=== PATIENT | female | born 1995 | race Two or more races ===

== ENCOUNTER 2020-03-13 17:05 | Observation (INO) | payer OTHER ==
[2020-03-13] VITALS (7 sets, daily range): BP systolic 77–108; BP diastolic 51–64
[~2020-03-13] VITALS: Ht 160 cm; Wt 70.8 kg
[~2020-03-13 17:05] MED LIST: LACT. RINGERS/OXYTOCIN 20UNITS 1,000 ML IV SCH
[2020-03-13] MEDS ORDERED: ceFAZolin 1GM/50ML 50 ML IV ONE (18:30)
[2020-03-13 18:33] LABS: Basophils # (auto) 0.1 10 ^3/uL (0-0.2); Basophils % (auto) 0.3 % (0.0-2.0); Eosinophils # (auto) 0 10 ^3/uL (0-0.8); Eosinophils % (auto) 0.2 % (0.0-7.0); Hematocrit 39.4 % (36.0-46.0); Hemoglobin 12.7 g/dL (12.2-16.2); Lymphocytes # (auto) 1.9 10 ^3/uL (0.4-5.4); Lymphocytes % (auto) 8.5 % (10.0-50.0); Mean Corpuscular Hemoglobin 28.5 pg (28.0-32.0); Mean Corpuscular Hgb Conc. 32.3 g/dL (32.0-36.0); Mean Corpuscular Volume 88.1 fL (80.0-100.0); Monocytes # (auto) 0.9 10 ^3/uL (0-1.3); Neutrophils # (auto) 19.6 10 ^3/uL (1.6-8.6); Platelet Count (auto) 361 10^3/uL (140-450); Red Blood Cells 4.47 10^6/uL (4.0-5.20); Red Cell Distribution Width 13.9 % (11.8-14.3); White Blood Cell 22.6 10^3/uL (4.4-10.8)
[2020-03-13] MEDS ORDERED: GENTAMICIN SULFATE 80 MG in D5W 5% 100 ML IV ONE (18:45)
[2020-03-13 18:50] LABS: Albumin 3.4 g/dL (3.4-5.0); Calcium 8.3 mg/dL (8.5-10.1); Potassium 3.4 mmol/L (3.5-5.1)
[2020-03-13 18:53] LABS: INR 1.07 (0.9-1.15); Partial Thromboplastin Time 21.7 sec (23.0-31.2)
[2020-03-13 18:54] LABS: BUN/Creatinine Ratio 12.9; Bilirubin, Total 0.3 mg/dL (0.2-1.0); Total Protein 7.1 g/dL (6.4-8.2)
[2020-03-13] MEDS ORDERED: MIDAZOLAM HCL 1MG/1ML-2 ML VIAL ONE (19:08)
[2020-03-13] MEDS ORDERED: fentaNYL CITRATE 100 MCG/2 ML VL ONE (19:08)
[2020-03-13] MEDS ORDERED: DexAMETHasone SOD PHOS 10MG/1ML VIAL INJ ONE (19:15)
[2020-03-13] MEDS ORDERED: PROPOFOL 10 MG/ML 20 ML IV ONE (19:36)
--- NOTE | 2020-03-13 19:40 | NUR ---
Dr Hoang on unit, labs and US results reviewed, orders received.
[2020-03-13] MEDS ORDERED: HYDROmorphone HCL 2 MG/ML VL IV PRN (19:45)
[2020-03-13] MEDS ORDERED: MIDAZOLAM HCL 1MG/1ML-2 ML VIAL IV PRN (19:45)
[2020-03-13] MEDS ORDERED: ePHEDrine SULFATE 50 MG/ML AMP IV PRN (19:45)
[2020-03-13] MEDS ORDERED: ONDANSETRON HCL 4 MG/2 ML VIAL IV PRN ×2 (19:45)
[2020-03-13] MEDS ORDERED: MORPHINE SULFATE 4 MG/ML SYR/VIAL IV PRN (19:45)
[2020-03-13] MEDS ORDERED: LABETALOL HCL 5 MG/ML 4ML SYRINGE IV PRN (19:45)
[2020-03-13] MEDS ORDERED: RHO (D) IMMUNE GLOBULIN 300 MCG INJ IM PRN (19:45)
[2020-03-13 19:54] LABS: Urine Bacteria NONE SEEN /hpf (None Seen); Urine Blood 2+ /uL (Negative); Urine Mucus MODERATE (None Seen); Urine Specific Gravity 1.034 (1.001-1.035); Urine WBC 4 /hpf (0 - 5)
[2020-03-13] MEDS ORDERED: GENTAMICIN PER PHARMACY 0 ML IV SCH (20:00)
[2020-03-13 20:03] LABS: Amphetamine Screen, Urine NEGATIVE (NEGATIVE); Barbiturate Scree,Urine NEGATIVE (NEGATIVE); Benzodiazephine Screen, Urine NEGATIVE (NEGATIVE); Cannabinoid Screen, Urine NEGATIVE (NEGATIVE); Cocaine Screen, Urine NEGATIVE (NEGATIVE); Opiate Scree,Urine NEGATIVE (NEGATIVE); Phencyclidine Screen, Urine NEGATIVE (NEGATIVE)
--- NOTE | 2020-03-13 20:15 | NUR ---
RECIEVED PT FROM [facility].D&C.SHE IS AWAKE AND ALERT.SHE IS INFORMED OF THIS STEP IN HER CARE AND RECOVERY.SHE IS TRANSFERED TO 8B.SHE IS ORIENTATED TO CALL LITE AND REVIEW OF THE PLAN OF CARE AT THIS TIME.. AT BEDSIDE.IV IN LEFT ARM INTACT.1000 WITH PITOCIN INFUSING 700 ML TBA.
--- NOTE | 2020-03-13 21:25 | NUR ---
IS CALLED AND SBAR REPORT IS GIVEN REGUARDING THE PT BP EVALUATION AND LOW URINE OUTPUT. 2130 DR.ZAND MURPHY IS ALSO GIVEN SBAR REPORT.NEW ORDERS ARE GIVEN AND NOTED
[2020-03-13] MEDS ORDERED: SODIUM CHL 0.9% 1000 ML BAG IV ONE (21:45)
[2020-03-13 22:38] LABS: Basophils # (auto) 0 10 ^3/uL (0-0.2); Basophils % (auto) 0.1 % (0.0-2.0); Eosinophils # (auto) 0 10 ^3/uL (0-0.8); Hematocrit 29.2 % (36.0-46.0); Hemoglobin 9.4 g/dL (12.2-16.2); Lymphocytes # (auto) 1.2 10 ^3/uL (0.4-5.4); Lymphocytes % (auto) 4.8 % (10.0-50.0); Mean Corpuscular Hemoglobin 28.4 pg (28.0-32.0); Mean Corpuscular Hgb Conc. 32.1 g/dL (32.0-36.0); Mean Corpuscular Volume 88.3 fL (80.0-100.0); Monocytes # (auto) 0.2 10 ^3/uL (0-1.3); Monocytes % (auto) 0.8 % (0.0-12.0); Neutrophils # (auto) 24.1 10 ^3/uL (1.6-8.6); Neutrophils % (auto) 94.3 % (37.0-80.0); Platelet Count (auto) 321 10^3/uL (140-450); Red Blood Cells 3.31 10^6/uL (4.0-5.20); White Blood Cell 25.5 10^3/uL (4.4-10.8)
[2020-03-13 22:57] LABS: INR 1.1 (0.9-1.15); Partial Thromboplastin Time 23.7 sec (23.0-31.2)
[2020-03-13 22:58] LABS: Albumin 2.7 g/dL (3.4-5.0); BUN/Creatinine Ratio 13.1; Calcium 7.3 mg/dL (8.5-10.1); Potassium 3.9 mmol/L (3.5-5.1)
[2020-03-13 23:02] LABS: Bilirubin, Total 0.2 mg/dL (0.2-1.0); Total Protein 5.5 g/dL (6.4-8.2)
--- NOTE | 2020-03-13 23:16 | NUR ---
Dr Hoang called, lab results reviewed, VS reviewed. Orders received for repeat CBC at 0600.
--- NOTE | 2020-03-13 23:30 | NUR ---
DR.ZAND MURPHY IS CALLED AND SBAR REPORT IS GIVEN,NOTED IMPROVEMENT OF URINE OUTPUT PT WILL CONTINUE TO BE MONITORED.
[2020-03-14 00:45] VITALS: BP 98/61
[2020-03-14 02:00] VITALS: BP 102/66
[2020-03-14] MEDS: ceFAZolin 1GM/50ML 50 ML IV SCH ×2 (02:04→10:06)
[2020-03-14 03:00] VITALS: BP 104/66
[2020-03-14] MEDS ORDERED: GENTAMICIN SULFATE 80 MG in D5W 5% 100 ML IV SCH (03:00)
[2020-03-14] MEDS: GENTAMICIN SULFATE 80 MG in D5W 5% 100 ML IV SCH ×2 (04:48→12:34)
[2020-03-14 06:36] LABS: Basophils # (auto) 0 10 ^3/uL (0-0.2); Basophils % (auto) 0.1 % (0.0-2.0); Eosinophils # (auto) 0 10 ^3/uL (0-0.8); Hemoglobin 8.1 g/dL (12.2-16.2); Lymphocytes # (auto) 1.5 10 ^3/uL (0.4-5.4); Mean Corpuscular Hemoglobin 28.9 pg (28.0-32.0); Mean Corpuscular Hgb Conc. 32.7 g/dL (32.0-36.0); Mean Corpuscular Volume 88.4 fL (80.0-100.0)
[2020-03-14 06:39] LABS: Hematocrit 24.7 % (36.0-46.0); Lymphocytes % (auto) 11.5 % (10.0-50.0); Monocytes # (auto) 0.4 10 ^3/uL (0-1.3); Monocytes % (auto) 2.7 % (0.0-12.0); Neutrophils # (auto) 11.1 10 ^3/uL (1.6-8.6); Neutrophils % (auto) 85.7 % (37.0-80.0); Platelet Count (auto) 260 10^3/uL (140-450); Red Blood Cells 2.79 10^6/uL (4.0-5.20); Red Cell Distribution Width 14.1 % (11.8-14.3); White Blood Cell 12.9 10^3/uL (4.4-10.8)
[2020-03-14 06:50] VITALS: BP 94/75
--- NOTE | 2020-03-14 07:35 | NUR ---
Branch catheter dc'd Order received from Dr. Hoang to discontinue branch catheter. Branch dc'd with clean technique following deflation of balloon. Patient tolerated well with no complaints of pain. Continue care.
--- NOTE | 2020-03-14 08:00 | NUR ---
PT ambulates to bathroom with steady gait. PT voids 200 ml without difficulty. PT back to bed , no signs of distress noted.
[2020-03-14 11:00] VITALS: BP 100/68
--- NOTE | 2020-03-14 13:45 | NUR ---
Dr. Hoang gives discharge order.
--- NOTE | 2020-03-14 13:50 | NUR ---
IV removal IV DC'd in left AC with clean sterile technique, catheter fully intact. Pressure dressing applied to site. Patient tolerated well. NOTE:
--- NOTE | 2020-03-14 13:59 | NUR ---
PT given discharge teachings. Dilation and Curret[employer] aftercare handout given. PT made follow up visit with primary OBGYN at [place] on Thursday. No signs of distress. PT to call RN when she is ready to leave.
--- NOTE | 2020-03-14 14:25 | NUR ---
PT discharged home in stable condition. No signs of distress.
[2020-03-15 07:06] LABS: Rubella Antibodies, IgG 1.46 index (Immune >0.99)
[2020-03-15 08:06] LABS: RPR Non Reactive (Non Reactive)
== END 2020-03-14 14:25 | disposition home or self-care (01) ==
LOC: ER 17:05 → EDBD 17:05 → LDRP 17:45
PROVIDERS: ADMIT Obstetrics & Gynecology; ATTEND Obstetrics & Gynecology
DX: O03.4 Incomplete spontaneous abortion without complication (principal); Z20.828 Contact with and (suspected) exposure to other viral communicable diseases; Z3A.08 8 weeks gestation of pregnancy; Z79.899 Other long term (current) drug therapy
CPT/HCPCS: 36415; 59812; 76801; 80053; 80170; 80307; 81001; 85025; 85384; 85610; 85730; 86592; 86703; 86762; 86850; 86900; 86901; 86920; 87340; 88305; 94760; 96361; 96365; 96366; 96367; 96368; 99284; G0378; J0690; J1100; J1580; J2250; J2704; J3010; J7030; J7060; U0003; 96360

== ENCOUNTER 2021-04-17 23:36 | Emergency (ER) | payer BC, OTHER ==
[~2021-04-17] VITALS: Ht 160 cm; Wt 74.8 kg
[2021-04-18 00:44] LABS: Basophils # (auto) 0.1 10 ^3/uL (0-0.2); Basophils % (auto) 0.6 % (0.0-2.0); Eosinophils # (auto) 0 10 ^3/uL (0-0.8); Eosinophils % (auto) 0.2 % (0.0-7.0); Hematocrit 39.6 % (36.0-46.0); Hemoglobin 13.4 g/dL (12.2-16.2); Lymphocytes # (auto) 1.9 10 ^3/uL (0.4-5.4); Lymphocytes % (auto) 11.9 % (10.0-50.0); Mean Corpuscular Hemoglobin 28.8 pg (28.0-32.0); Mean Corpuscular Hgb Conc. 33.9 g/dL (32.0-36.0); Mean Corpuscular Volume 84.8 fL (80.0-100.0); Monocytes # (auto) 0.9 10 ^3/uL (0-1.3); Monocytes % (auto) 5.6 % (0.0-12.0); Neutrophils # (auto) 12.9 10 ^3/uL (1.6-8.6); Neutrophils % (auto) 81.7 % (37.0-80.0); Red Blood Cells 4.67 10^6/uL (4.0-5.20); Red Cell Distribution Width 14.8 % (11.8-14.3); White Blood Cell 15.8 10^3/uL (4.4-10.8)
[2021-04-18 01:05] LABS: Albumin 3.9 g/dL (3.4-5.0); BUN/Creatinine Ratio 18.3; Calcium 8.8 mg/dL (8.5-10.1); Potassium 4.2 mmol/L (3.5-5.1)
[2021-04-18 01:07] LABS: Bilirubin, Total 0.2 mg/dL (0.2-1.0); Total Protein 7.5 g/dL (6.4-8.2)
[2021-04-18 01:13] LABS: Urine Bacteria NONE SEEN /hpf (None Seen); Urine Blood 3+ /uL (Negative); Urine Mucus FEW (None Seen); Urine Specific Gravity 1.023 (1.001-1.035); Urine WBC 18 /hpf (0 - 5)
[2021-04-18 05:18] VITALS: BP 150/91
== END 2021-04-18 05:25 | disposition home or self-care (01) ==
LOC: ER 23:36
DX: O20.0 Threatened abortion (principal); Z3A.01 Less than 8 weeks gestation of pregnancy; Z88.8 Allergy status to other drugs, medicaments and biological substances
CPT/HCPCS: 36415; 76801; 76817; 80053; 81001; 84702; 85025